=== PATIENT | female | born 1990 | race Asian ===

== ENCOUNTER 2016-11-19 18:32 | Emergency (ER) | payer OTHER ==
--- NOTE | 2016-11-19 20:07 | ED ---
Headache - HPI Summary HPI Summary: 26F presents with headache today. She states that the headache was 8-10 in intensity and was worst headache of life. He states that it was a sudden onset throbbing headache. She states pain is greatest in left alevism with slight ringing in ear. She states lasted a couple of minutes took ibuprofen 200mg, left ear is warm, dull headache now, pt states that she has dull headaches that is her normal. She has history of Pituitary cysts. She has no family history of aneurysm. - History Of Current Complaint Chief Complaint: EDHeadache Stated Complaint: SUDDEN ONSET HEADACHE,WARM EARS Time Seen by Provider: 11/19/16 19:40 - Allergies/Home Medications Allergies/Adverse Reactions: Allergies Allergy/AdvReac Type Severity Reaction Status Date / Time No Known Allergies Allergy Verified 11/19/16 19:37 PMH/Surg Hx/FS Hx/Imm Hx Endocrine/Hematology History: Denies: Hx Diabetes Cardiovascular History: Denies: Hx Hypertension, Hx Pacemaker/ICD History: Denies: Hx Renal Disease Sensory History: Denies: Hx Hearing Aid Psychiatric History: Denies: Hx Panic Disorder Infectious Disease History: No Infectious Disease History: Denies: Traveled Outside the [place] in Last 30 Days - Social History Alcohol Use: None Substance Use Type: Reports: None Smoking Status (MU): Never Smoked Tobacco Review of Systems Negative: Fever Negative: Photophobia Positive: Ear Ache Negative: Chest Pain Negative: Shortness Of Breath Positive: Headache All Other Systems Reviewed And Are Negative: Yes Physical Exam Triage Information Reviewed: Yes Vital Signs On Initial Exam: Initial Vitals Temp Pulse Resp BP Pulse Ox 97.4 F 78 17 123/76 100 11/19/16 18:39 11/19/16 18:39 11/19/16 18:39 11/19/16 18:39 11/19/16 18:39 Vital Signs Reviewed: Yes Appearance: Positive: Well-Appearing Skin: Positive: Warm, Dry Head/Face: Positive: Normal Head/Face Inspection. Negative: Temporal Artery Tenderness Eyes: Positive: Normal, EOMI, LINDA, Conjunctiva Clear ENT: Positive: Normal ENT inspection, Pharynx normal, TMs normal Respiratory/Lung Sounds: Positive: Clear to Auscultation, Breath Sounds Present Cardiovascular: Positive: Normal, RRR Neurological: Positive: Sensory/Motor Intact, Alert, Oriented to Person Place, Time, CN Intact II-III, Heel to Toe, Finger to Nose - Bhavna Coma Scale Best Eye Response: 4 - Spontaneous Best Motor Response: 6 - Obeys Commands Best Verbal Response: 5 - Oriented Coma Scale Total: 15 Diagnostics - Vital Signs Vital Signs Temp Pulse Resp BP Pulse Ox 11/19/16 19:35 97.8 F 77 14 108/72 100 11/19/16 18:39 97.4 F 78 17 123/76 100 - Laboratory Result Diagrams: 11/19/16 21:20 11/19/16 21:20 Lab Statement: Any lab studies that have been ordered have been reviewed, and results considered in the medical decision making process. - CT head CT Interpretation: No Acute Changes CT Interpretation Completed By: Radiologist Headache Course/Dx - Course Course Of Treatment: 26F presents with worst headache of life that lasted for a minute and resolved with ibuprofen. she has a history of chronic dull headaches and has one currently. she has pituitary cyst but has peripheral vision on exam and normal neuro exam. denies any nausea or vomiting. states headache was throbbing in nature and had ear fullness. spoke with dr sellers said get labs and CT. labs normal. spoke with patient and after multiple discussion finally agreed to do CT. did not want CTA or lumbar puncture. patient very concerned about radiation. - Diagnoses Differential Diagnosis/HQI/PQRI: Meningitis, Migraine, Subarachnoid Hemorrhage Provider Diagnoses: Headache Discharge - Discharge Plan Condition: Good Disposition: HOME Patient Education Materials: Acute Headache (ED) [facility] - Toño Sellers MD [Medical Doctor] - Additional Instructions: Take ibuprofen or Tylenol for headache If continue to have issues with headache follow up with neurology Return to ED if develop any new or worsening symptoms
[2016-11-19 21:33] LABS: Hematocrit 41 % (35-47); Hemoglobin 13.5 g/dl (12.0-16.0); Mean Corpuscular HGB Conc 33 g/dl (31-36); Mean Corpuscular Hemoglobin 28 pg (27-31); Mean Corpuscular Volume 85 fL (80-97); Mean Platelet Volume 9 um3 (7.4-10.4); Red Blood Count 4.78 10^6/ul (4.0-5.4); Red Cell Distribution Width 12 % (10.5-15); White Blood Count 6.9 10^3/ul (3.5-10.8)
[2016-11-19 21:48] LABS: Albumin 4.5 g/dL (3.2-5.2); BUN/Creatinine Ratio 26.2 (8-20); Calcium 9.5 mg/dL (8.6-10.3); EGFR Non-African American 120.5 (>60); Globulin 2.9 g/dL (2-4); Potassium 3.7 mmol/L (3.5-5.0); Total Bilirubin 0.6 mg/dL (0.2-1.0); Total Protein 7.4 g/dL (6.4-8.9)
--- NOTE | 2016-11-19 22:10 | RAD ---
HISTORY: Headache COMPARISONS: MRI of the brain dated August 16, 2016 TECHNIQUE: Multiple contiguous axial CT scans were obtained of the head without intravenous contrast. FINDINGS: HEMORRHAGE/INFARCT: There is no hemorrhage or acute infarct. MASSES/SHIFT: There is no mass or shift. EXTRA-AXIAL SPACES: There are no extra-axial fluid collections. SULCI AND VENTRICLES: The sulci and ventricles are normal in size and position for the patient's stated age. CEREBRUM: There are no focal parenchymal abnormalities. BRAINSTEM: There are no focal parenchymal abnormalities. CEREBELLUM: There are no focal parenchymal abnormalities. VESSELS: The vessels are grossly normal. PARANASAL SINUSES: The paranasal sinuses are clear. ORBITS: The orbits are unremarkable. BONES AND SOFT TISSUE: No bone or soft tissue abnormalities are noted. 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 IMPRESSION: NO ACUTE INTRACRANIAL PATHOLOGY.
[2016-11-19 22:45] VITALS: BP 106/73
== END 2016-11-19 22:43 | disposition home or self-care (01) ==
LOC: ED 18:32
DX: R51 Headache (principal)
CPT/HCPCS: 36415; 70450; 80053; 85025; 99282